=== PATIENT | female | born 1980 | race African-American/Black ===

== ENCOUNTER 2019-10-16 21:10 | Emergency (ER) | payer MEDICAID ==
[~2019-10-16] VITALS: Ht 172.7 cm; Wt 82.0 kg
[~2019-10-16 21:10] MED LIST: SIMV10TA2 PO
[2019-10-16] MEDS ORDERED: HYDROCODONE/ACETAMINOPHEN 5/325MG TABLET PO ONE (23:15)
[2019-10-16] MEDS ORDERED: CYCLOBENZAPRINE 10MG TABLET PO ONE (23:15)
[2019-10-17 02:28] LABS: CLARITY URINE CLOUDY (CLEAR); COLOR URINE YELLOW (YELLOW); KETONES URINE NEGATIVE (NEGATIVE); LEUKOCYTE ESTERASE URINE NEGATIVE (NEGATIVE); NITRITE URINE NEGATIVE (NEGATIVE); OCCULT BLOOD URINE NEGATIVE (NEGATIVE); PH URINE 8.5 (4.5-8.0); PROTEIN URINE NEGATIVE (NEGATIVE); SPECIFIC GRAVITY URINE 1.025 (1.005-1.030); UROBILINOGEN URINE 0.2 E.U./dL (0.2-1.0)
[2019-10-17 03:10] VITALS: BP 129/78
== END 2019-10-17 03:10 | disposition home or self-care (01) ==
LOC: ER 21:10
DX: M25.561 Pain in right knee (principal); M25.551 Pain in right hip; M25.532 Pain in left wrist; S50.12XA Contusion of left forearm, initial encounter; M79.642 Pain in left hand; M25.522 Pain in left elbow; W22.11XA Striking against or struck by driver side automobile airbag, initial encounter; V49.40XA Driver injured in collision with unspecified motor vehicles in traffic accident, initial encounter; Y93.89 Activity, other specified; Y92.410 Unspecified street and highway as the place of occurrence of the external cause
CPT/HCPCS: 73080; 73110; 73130; 73502; 73562; 81003; 81025; 99284

== ENCOUNTER 2024-07-08 21:11 | Emergency (ER) | payer MEDICAID, OTHER ==
[~2024-07-08] VITALS: Ht 172.7 cm; Wt 102.0 kg
[~2024-07-08 21:11] MED LIST changes: +SIMV-341 PO; -SIMV10TA2 PO
[2024-07-08 21:58] VITALS: O2SAT 98
[2024-07-08 22:34] LABS: CLARITY URINE CLEAR (CLEAR); COLOR URINE YELLOW (YELLOW); GLUCOSE URINE NEGATIVE (NEGATIVE); KETONES URINE 1+ (NEGATIVE); LEUKOCYTE ESTERASE URINE TRACE (NEGATIVE); NITRITE URINE NEGATIVE (NEGATIVE); OCCULT BLOOD URINE 1+ (NEGATIVE); PH URINE 5.5 (4.5-8.0); PROTEIN URINE NEGATIVE (NEGATIVE); SPECIFIC GRAVITY URINE 1.027 (1.005-1.030); UROBILINOGEN URINE 0.2 E.U./dL (0.2-1.0)
[2024-07-08 22:54] LABS: BASOPHILS % 0.4 % (0.0-2.0); EOSINOPHILS % 1.8 % (0.0-5.0); HEMATOCRIT. 34.9 % (36.0-48.0); LYMPHOCYTES % 29.7 % (20.0-50.0); MEAN CORPUSCULAR HEMOGLOBIN 32.6 pg (28.0-32.0); MEAN CORPUSCULAR HGB CONC 34.5 g/dL (31.0-37.0); MEAN CORPUSCULAR VOLUME 94.7 fL (81.0-99.0); MEAN PLATELET VOLUME 7.4 fl (7.4-10.4); MONOCYTES % 7.5 % (2.0-8.0); NEUTROPHILS % 60.6 % (40.0-76.0); PLATELET 331 x1000/uL (130-400); RED BLOOD CELL COUNT 3.68 mill/uL (4.2-5.4); RED CELL DISTRIBUTION WIDTH 14.1 % (11.6-14.6); WHITE BLOOD COUNT 7.3 x1000/uL (4.5-11.0)
[2024-07-08 23:01] LABS: CHLORIDE 108 mEq/L (98-107); POTASSIUM 3.6 mEq/L (3.5-5.1); SODIUM 141 mEq/L (136-145)
[2024-07-08 23:02] LABS: CALCIUM 9.4 mg/dL (8.7-10.4); CARBON DIOXIDE 26 mEq/L (21-32)
[2024-07-08 23:05] LABS: BACTERIA URINE 1+; SQUAMOUS EPITHELIAL CELL URINE 1+ /lpf (RARE/1+); WBC URINE 0-2 /hpf (0-2)
[2024-07-08 23:07] LABS: CREATININE 0.9 mg/dL (0.6-1.0); GLUCOSE 93 mg/dL (70-105); UREA NITROGEN BLOOD 10 mg/dL (9-23)
[2024-07-09] MEDS: ONDANSETRON 4MG ODT PO ONE (08:22)
[2024-07-09] MEDS: DIPHENOXYLATE/ATROPINE 2.5/0.025MG TABLET PO ONE (08:22)
[2024-07-09] MEDS ORDERED: DIPH-1091 MT (08:23)
[2024-07-09] MEDS ORDERED: FAMO40TA70 MT (08:23)
[2024-07-09] MEDS ORDERED: CIPR-263 MT (08:23)
[2024-07-09] MEDS ORDERED: TOPUD MT (08:23)
[2024-07-09 08:49] VITALS: BP 138/90; PULSE 60; RESP 15; TEMP 36.94740; O2SAT 98
== END 2024-07-09 08:52 | disposition home or self-care (01) ==
LOC: ER 21:11
DX: R11.2 Nausea with vomiting, unspecified (principal); R19.7 Diarrhea, unspecified; Z98.890 Other specified postprocedural states; Z20.822 Contact with and (suspected) exposure to COVID-19
CPT/HCPCS: 99283; 80048; 81003; 81025; 85025; 36415; 87426; Q0162